=== PATIENT | female | born 1960 | race Caucasian/White ===

== ENCOUNTER → 2016-07-10 | Outpatient (CLI) | payer OTHER ==
[~2016-07-10] MED LIST: BABY81CH; CLEO150C; DECADRON; LEVOXYL25 MCG; LISI20TA5; PENI500T; PERC5TAB8; PRED20TA; PRIL20CA; TESSALON PERLES; VICO5TAB; [UNRECOGNIZED DRUG - OTHER] TOP; cartia xt; omega 3
--- NOTE | 2016-07-10 10:53 | REP ---
PA and lateral chest radiograph 07/10/2016 Indication: Abnormal lung sounds, patient stating coughing since this weekend Comparison: CT chest with IV contrast 08/04/2009 Findings: The cardiomediastinal silhouette is normal. Minimal fibro atelectatic changes are seen in lung bases. There is no focal lung consolidation. There are mild degenerative changes in thoracic spine. Impression: 1. Normal cardiomediastinal silhouette. 2. Minimal fibro atelectatic changes in lung bases. No focal alveolar infiltrate or pleural effusion. Signed by Beverly Sanchez MD 07/10/2016 10:45 A
== END | disposition home or self-care (01) ==
LOC: M LRY 10:24
PROVIDERS: ATTEND Nurse Practitioner Family
DX: R09.89 Other specified symptoms and signs involving the circulatory and respiratory systems (principal); J98.4 Other disorders of lung

== ENCOUNTER → 2016-07-10 | Outpatient (REF) | payer OTHER | END | disposition home or self-care (01) | LOC: M SFHCLERA 10:09 | PROVIDERS: ATTEND Nurse Practitioner Family | DX: R50.9 Fever, unspecified (principal) ==

== ENCOUNTER → 2016-07-31 | Outpatient (REF) | payer OTHER ==
[2016-07-31 11:40] LABS: MEAN CORPUSCULAR HEMOGLOBIN 30.1 pg (27.0-33.0); MEAN CORPUSCULAR VOLUME 85.9 fl (80.0-96.0); RED CELL DISTRIBUTION WIDTH 13.2 % (11.5-14.5); WHITE BLOOD COUNT 5.8 K/mm3 (4.0-10.0)
[2016-07-31 12:20] LABS: ALBUMIN 3.4 GM/DL (3.2-5.2); ALKALINE PHOSPHATASE 65 U/L (45-117); ALT/SGPT 28 U/L (12-78); ANION GAP 10 MEQ/L (8-16); AST/SGOT 18 U/L (15-37); BILIRUBIN,TOTAL 0.4 MG/DL (0.2-1.0); BLOOD UREA NITROGEN 12 MG/DL (7-18); CALCIUM LEVEL 8.4 MG/DL (8.5-10.1); CARBON DIOXIDE LEVEL 27 MEQ/L (21-32); CHLORIDE LEVEL 108 MEQ/L (98-107); CREATININE FOR GFR 0.82 MG/DL (0.55-1.02); FREE T4 1.02 NG/DL (0.76-1.46); GLOMERULAR FILTRATION RATE > 60.0 (>51); GLUCOSE, FASTING 111 MG/DL (70-105); POTASSIUM SERUM 4.2 MEQ/L (3.5-5.1); SODIUM LEVEL 145 MEQ/L (136-145); TOTAL PROTEIN 6.8 GM/DL (6.4-8.2)
== END | disposition home or self-care (01) ==
LOC: M SFHCLERA 10:15
PROVIDERS: ATTEND Family Medicine
DX: I10 Essential (primary) hypertension (principal)

== ENCOUNTER → 2016-09-21 | Outpatient (REF) | payer OTHER | LOC: M SFHCWAGY 09:59 | PROVIDERS: ATTEND Nurse Practitioner Family | DX: Z12.4 Encounter for screening for malignant neoplasm of cervix (principal) ==

== ENCOUNTER → 2016-09-21 | Outpatient (CLI) | payer OTHER ==
--- NOTE | 2016-09-21 10:12 | REPMRS ---
Patient History The patient states she had a clinical breast exam in 08/2016. Patient is postmenopausal. No known family history of cancer. Digital Woman Screen Mammo: September 21, 2016 - Exam #: [id number] Bilateral CC and MLO view(s) were taken. Technologist: Mary Lou Molina Technologist Prior study comparison: July 07, 2014, digital woman screen mammo performed at [facility]. June 05, 2012, digital woman screen mammo performed at [facility]. FINDINGS: There are scattered fibroglandular densities. There has been no change in the appearance of the mammogram from the prior studies. There is a mild amount of residual fibroglandular tissue which is fairly symmetric. There is no interval development of dominant mass, architectural distortion, or clustered microcalcification suggestive of malignancy. Scattered lymph nodes are seen in the axilla. There are scattered, small, benign calcifications of doubtful clinical significance. No significant changes when compared with prior studies. ASSESSMENT: BI-RADS/ACR category 2 mammogram. Benign finding(s). Recommendation Routine screening mammogram in 1 year (for women over age 40). This mammogram was interpreted with the aid of an FDA-approved computer-aided dectection system. A. Negative x-ray reports should not delay biopsy if a dominant or clinically suspicious mass is present. B. Four to eight percent of cancers are not identified by mammography. C. Adenosis and dense breast may obscure an underlying neoplasm. Electronically Signed By: Gómez Lugo MD 09/21/16 [id number]
== END ==
LOC: M WHC 09:22
PROVIDERS: ATTEND Family Medicine
DX: Z12.31 Encounter for screening mammogram for malignant neoplasm of breast (principal); Z78.0 Asymptomatic menopausal state; R92.1 Mammographic calcification found on diagnostic imaging of breast

== ENCOUNTER → 2017-12-05 | Outpatient (REF) | payer OTHER ==
[2017-12-05 20:37] LABS: ESTIMATED AVERAGE GLUCOSE 117 MG/DL (60-110); HEMOGLOBIN A1c 5.7 %
[2017-12-05 20:45] LABS: ALBUMIN 4.1 GM/DL (3.2-5.2); ALBUMIN/GLOBULIN RATIO 1.08 (1.00-1.93); ALKALINE PHOSPHATASE 72 U/L (45-117); ALT/SGPT 26 U/L (12-78); ANION GAP 9 MEQ/L (8-16); AST/SGOT 23 U/L (7-37); BILIRUBIN,TOTAL 0.4 MG/DL (0.2-1.0); BLOOD UREA NITROGEN 14 MG/DL (7-18); CALCIUM LEVEL 9.3 MG/DL (8.5-10.1); CARBON DIOXIDE LEVEL 30 MEQ/L (21-32); CHLORIDE LEVEL 104 MEQ/L (98-107); CHOLESTEROL LEVEL 162 MG/DL (<200); CHOLESTEROL RISK RATIO 4.378 (<5); CREATININE FOR GFR 0.85 MG/DL (0.55-1.30); GLOMERULAR FILTRATION RATE > 60.0 (>51); GLUCOSE, FASTING 75 MG/DL (70-100); HDL CHOLESTEROL 37 MG/DL (>40); LDL CHOLESTEROL 74.2 MG/DL (<100); NON-HDL-C 125 MG/DL; POTASSIUM SERUM 4.6 MEQ/L (3.5-5.1); SODIUM LEVEL 143 MEQ/L (136-145); THYROID STIMULATING HORMONE 0.399 uIU/ML (0.358-3.740); TOTAL PROTEIN 7.9 GM/DL (6.4-8.2); TRIGLYCERIDES LEVEL 254 MG/DL (<150)
[2017-12-05 21:18] LABS: HEMATOCRIT 43.8 % (36.0-47.0); HEMOGLOBIN 15.2 g/dl (12.0-15.5); MEAN CORPUSCULAR HEMOGLOBIN 30.2 pg (27.0-33.0); MEAN CORPUSCULAR HGB CONC 34.7 g/dl (32.0-36.5); MEAN CORPUSCULAR VOLUME 87.1 fl (80.0-96.0); PLATELET COUNT, AUTOMATED 350 10^3/uL (150-450); RED BLOOD COUNT 5.03 10^6/uL (4.00-5.40); RED CELL DISTRIBUTION WIDTH 13.3 % (11.5-14.5); WHITE BLOOD COUNT 8.3 10^3/uL (4.0-10.0)
== END ==
LOC: M SFHCLERA 16:05
DX: I10 Essential (primary) hypertension (principal); E03.9 Hypothyroidism, unspecified; R73.01 Impaired fasting glucose; Z13.220 Encounter for screening for lipoid disorders

== ENCOUNTER → 2018-06-16 | Outpatient (REF) | payer OTHER | LOC: M SFHCLERA 09:44 | PROVIDERS: ATTEND Physician Assistant | DX: R53.81 Other malaise (principal) ==

== ENCOUNTER → 2018-06-19 | Outpatient (CLI) | payer OTHER ==
--- NOTE | 2018-06-19 12:12 | REP ---
Clinical: shortness of breath. Comparison: 07/10/2016. Technique: PA and lateral. Findings: The mediastinum and cardiac silhouette are normal. The lung warner are clear and without acute consolidation, effusion, or pneumothorax. The skeletal structures are intact and normal. Impression: 1. No acute cardiopulmonary process. Electronically Signed by Hoang Coffman MD 06/19/2018 12:04 P
== END ==
LOC: M LRY 11:46
PROVIDERS: ATTEND Nurse Practitioner Family
DX: R06.02 Shortness of breath (principal)

== ENCOUNTER → 2018-09-06 | Outpatient (CLI) | payer OTHER ==
--- NOTE | 2018-09-06 16:55 | REP ---
Chest two views HISTORY: Asthma Comparison: 06/19/2018 The lungs are clear. The cardiac silhouette is enlarged. The pulmonary vasculature is normal in appearance. The bony structure is intact. IMPRESSION: Cardiomegaly. Electronically Signed by Rg Pritchard MD 09/06/2018 04:46 P
== END ==
LOC: M LRY 16:19
PROVIDERS: ATTEND Nurse Practitioner Family
DX: I51.7 Cardiomegaly (principal)

== ENCOUNTER → 2018-10-08 | Outpatient (CLI) | payer OTHER ==
--- NOTE | 2018-10-08 09:15 | REP ---
CT chest without contrast: History: History of multiple pulmonary nodules. Previous history of multiple pulmonary granulomas, suspect sarcoidosis. Comparison chest CT study August 04, 2009. Comparison chest x-ray is from September 06, 2018. CT findings: Digital preliminary heater operator helper radiograph is unremarkable. There is no evidence of pleural or pericardial effusion. There is a mild diffuse ground-glass opacity pattern throughout the lung parenchyma consistent with alveolar disease. There are some areas of sparing in the lower lobes bilaterally with some mosaic like changes. There is a small bleb in the right middle lobe. There is a tiny 4 mm stable nodule in the left apex unchanged from the 2010 study. There is a tiny area of peripheral subpleural fibrosis in the right middle lobe. This is also unchanged from the 2010 study. There is another area of peripheral subpleural fibrosis adjacent to it which is stable as well. There is a calcified granuloma in the right lower lobe posteromedially. This is unchanged as well. No other pulmonary nodular density is seen. The ground-glass opacity pattern is new from the 2010 prior study. There is no evidence of pleural or pericardial effusion. No adrenal lesion is seen. The visualized upper abdominal structures show a intrarenal calculus in the upper pole of the left kidney. There are scattered mediastinal lymph nodes. There is a epicardial lymph node adjacent to the central SVC which is normal in size, 0.8 cm, and unchanged from the comparison study. The largest precarinal lymph node measures 9 mm in short axis dimension. This is larger than on the 2010 study. There are two or three other peritracheal lymph nodes which are normal in size. No definite adenopathy. No bony destructive lesion is seen. Impression: Essentially diffuse mild ground-glass opacity pattern in the lung parenchyma with some sparing in the lower lobes. There are only two discernible granulomatous nodules which are unchanged. The ground-glass opacity pattern is new. This pattern has a very broad differential. Electronically Signed by Bo Majano MD 10/08/2018 10:23 A
== END ==
LOC: M RAD 06:52
PROVIDERS: ATTEND Nurse Practitioner Family
DX: Z87.898 Personal history of other specified conditions (principal)

== ENCOUNTER 2018-10-20 06:54 | Inpatient (IN) | payer OTHER ==
[~2018-10-20] VITALS: Ht 162.6 cm; Wt 83.6 kg
[2018-10-20] MEDS ORDERED: NS 1,000 ML IV ONE (07:30)
[2018-10-20] MEDS ORDERED: ALBUTEROL SULFATE 2.5 MG/0.5 ML INH NEB SOLN NEB ONE (07:30)
--- NOTE | 2018-10-20 07:47 | ECGEPIP ---
Stationary ECG Study [facility] - ED Test Date: 2018-10-20 Pat Name: ALLIE JAVIER Department: Room: - Gender: F Extracorporeal Technician: TC : 1960 Requested By: AMBER Brown Order Number: [id number] Reading MD: Leida Knox Measurements Intervals [place] Rate: 86 P: 24 AL: 148 QRS: 51 QRSD: 118 T: 16 QT: 374 QTc: 449 Interpretive Statements SINUS RHYTHM MODERATE INTRAVENTRICULAR CONDUCTION DELAY NO PRIOR FOR COMPARISON Electronically Signed On 10-20-2018 7:47:21 EDT by Leida Knox
[2018-10-20 07:53] LABS: BASO % 0.4 % (0.0-1.0); EOS # 0.3 10^3/uL (0.0-0.50); EOS % 4.3 % (0.0-3.0); HEMATOCRIT 43.9 % (36.0-47.0); HEMOGLOBIN 15.2 g/dl (12.0-15.5); LYMPH # 2.1 10^3/uL (1.5-4.5); LYMPH % 28.8 % (24.0-44.0); MEAN CORPUSCULAR HEMOGLOBIN 29.7 pg (27.0-33.0); MEAN CORPUSCULAR HGB CONC 34.6 g/dl (32.0-36.5); MEAN CORPUSCULAR VOLUME 85.9 fl (80.0-96.0); MONO # 0.6 10^3/uL (0.0-0.8); MONO % 8.1 % (0.0-5.0); NEUTROPHILS # 4.2 10^3/uL (1.8-7.7); PLATELET COUNT, AUTOMATED 351 10^3/uL (150-450); RED BLOOD COUNT 5.11 10^6/uL (4.00-5.40); WHITE BLOOD COUNT 7.2 10^3/uL (4.0-10.0)
[2018-10-20 08:03] LABS: ABG BASE EXCESS -1.7 (-2.0-2.0); ABG O2 SATURATION 90.1 % (95.0-99.0); ABG PARTIAL PRESSURE CO2 34.8 mmHg (35.0-45.0); ABG PARTIAL PRESSURE O2 57.1 mmHg (75.0-100.0); ABG STANDARD HCO3 22.8 MEQ/L (22.0-26.0); ABG TOTAL CO2 23.1 MEQ/L (22.0-29.0); ABG pH (ARTERIAL) 7.419 UNITS (7.350-7.450)
[2018-10-20 08:03] LABS: INR 0.94; PROTHROMBIN TIME 12.7 SECONDS (12.1-14.4)
[2018-10-20] MEDS ORDERED: CALC500C16 PO (08:26)
[2018-10-20] MEDS ORDERED: B COTAB3 PO ×2 (08:26→10:15)
[2018-10-20] MEDS ORDERED: LISI-538 PO ×2 (08:26→10:15)
--- NOTE | 2018-10-20 08:35 | REP ---
Chest two views HISTORY: Cough Comparison: 09/06/2018 The lungs are clear. The heart is normal in size. The pulmonary vasculature is normal in appearance. The bony structure is intact. IMPRESSION: No acute disease. Electronically Signed by Rg Pritchard MD 10/20/2018 08:27 A
[2018-10-20 08:56] LABS: ALBUMIN 3.7 GM/DL (3.2-5.2); ALT/SGPT 21 U/L (12-78); BILIRUBIN,DIRECT < 0.1 MG/DL (0.0-0.2); BILIRUBIN,TOTAL 0.4 MG/DL (0.2-1.0); BLOOD UREA NITROGEN 9 MG/DL (7-18); C REACTIVE PROTEIN QUANTITATIV 1.42 MG/DL (0.00-0.30); CALCIUM LEVEL 8.6 MG/DL (8.5-10.1); CARBON DIOXIDE LEVEL 25 MEQ/L (21-32); CHLORIDE LEVEL 111 MEQ/L (98-107); CPK CREATINE PHOSPHOKINASE 88 U/L (26-192); CREATININE FOR GFR 0.97 MG/DL (0.55-1.30); GLOMERULAR FILTRATION RATE > 60.0 (>51); GLUCOSE, FASTING 115 MG/DL (70-100); MB/CK RELATIVE INDEX 2.73 (< OR =4); NT-PRO BNP 101 PG/ML (<125); POTASSIUM SERUM 4.3 MEQ/L (3.5-5.1); SODIUM LEVEL 141 MEQ/L (136-145); TOTAL PROTEIN 7.3 GM/DL (6.4-8.2); TROPONIN I < 0.02 NG/ML (< 0.10)
[2018-10-20] MEDS ORDERED: ISOVUE-370 76% 100ML VIAL (Q9967) As Ordered ONE (08:58)
[2018-10-20] MEDS ORDERED: PIPERACILLIN/TAZOBACTAM SOD 3.375 GM in D5W MINI-BAG PLUS 50 ML IV ONE (10:00)
--- NOTE | 2018-10-20 10:01 | REP ---
CT ANGIO CHEST: HISTORY: Hypoxia. CONTRAST: Isovue 370, 75 mL. COMPARISON: CT chest 10/08/2018. There are no filling defects in the main, right and left pulmonary arteries or their branches. A diffuse ground-glass appearance is present throughout the lungs that is increased compared to the previous study. A calcified granuloma is present in the right lower lobe seen in image #120. A 4 mm parenchymal nodule is present in the left upper lobe seen in image #28. There is no pleural effusion. The heart is normal in size. There is no aneurysm. Lymph nodes measuring 5 to 9 mm are present in the mediastinum. Degenerative change is present in the thoracic spine. IMPRESSION: 1. There is no pulmonary embolism. 2. There is a diffuse ground-glass appearance of the lungs that is increased compared to the previous study. Electronically Signed by Rg Pritchard MD 10/20/2018 10:09 A
[2018-10-20] MEDS ORDERED: VITA400C53 PO (10:15)
[2018-10-20] MEDS ORDERED: OMEP-218 PO (10:15)
[2018-10-20] MEDS ORDERED: ALBU83IN INH (10:15)
[2018-10-20] MEDS ORDERED: GUAI400T9 PO (10:15)
[2018-10-20] MEDS ORDERED: CHOL10007 PO (10:15)
[2018-10-20] MEDS ORDERED: CALCTAB17 PO (10:15)
[2018-10-20] MEDS ORDERED: CELE20TA PO (10:15)
[2018-10-20] MEDS ORDERED: LORA-436 PO (10:15)
[2018-10-20] MEDS ORDERED: PROAAER10 INH (10:15)
[2018-10-20] MEDS ORDERED: LEVO75TA4 PO (10:15)
[2018-10-20] MEDS ORDERED: ASPI81TA85 PO (10:15)
[2018-10-20] MEDS ORDERED: guaiFENesin 200 MG TAB PO PRN (11:00)
[2018-10-20] MEDS ORDERED: ACETAMINOPHEN TAB 650MG DOSE (2X325MG) PO PRN (11:00)
[2018-10-20] MEDS ORDERED: IPRATROPIUM 0.5MG/ALBUTEROL 2.5MG INH SOL UD 3ML (DUONEB)(J7620) NEB PRN (11:00)
[2018-10-20] MEDS: methylPREDNISolone INJ 40 MG/1 ML VIAL (J2920) IV SCH ×2 (11:40→20:05)
[2018-10-20] MEDS: ENOXAPARIN 40 MG/0.4 ML SYRINGE (J1650) SC SCH (11:40)
[2018-10-20] MEDS: LORATADINE 10 MG TAB PO SCH (11:41)
[2018-10-20] MEDS: ASPIRIN 81 MG ENTERIC TAB PO SCH (11:41)
[2018-10-20] MEDS: VITAMIN D 1,000 INTERNATIONAL UNITS TABLET PO SCH (11:41)
[2018-10-20] MEDS: LEVOTHYROXINE 75MCG TABLET (0.075MG) PO SCH (11:41)
[2018-10-20] MEDS: LISINOPRIL 20 MG TAB PO SCH (11:42)
[2018-10-20] MEDS: IPRATROPIUM 0.5MG/ALBUTEROL 2.5MG INH SOL UD 3ML (DUONEB)(J7620) NEB SCH ×3 (11:48→19:55)
[2018-10-20 12:30] VITALS: BP 145/80
--- NOTE | 2018-10-20 15:29 | HPEPDOC ---
General Date of Admission Oct 20, 2018 at 10:50 Chief Complaint The patient is a 57-year-old female admitted with a reason for visit of Hypoxia. History of Present Illness 57-year-old female with past medical history of hypertension, hypothyroidism, GERD, anxiety/depression, seasonal allergies, and asthma presented to the ER with a chief complaint of shortness of breath and dry nonproductive cough. The patient states that her symptoms initially started back in May 2018 and she was given a trial of antibiotics and steroids which alleviated her respiratory symptoms. She once again had similar episodes of shortness of breath and cough in August and was provided with a similar treatment plan by her outpatient provid er. However, over the last 2 weeks the patient states that she continues to feel short of breath with a nonproductive cough. She denies any fevers, chills, chest pain, palpitations, abdominal pain, lower extremity edema, orthopnea, PND, or any nausea/vomiting/diarrhea. 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 Over the last several days, the patient states that she was checking her pulse oximeter which was noted to be in the 80s at rest and 70s on exertion. She denies a history of COPD, or tobacco use. The patient was referred by her PCP to be seen by pulmonary for the first time in the [place], [place] area but due to her symptoms she came to the ER. In the ER, a CT angiogram of the chest revealed no evidence of pulmonary embolism, however there was a diffuse groundglass appearance of the lungs. The patient will be admitted to the hospitalist service for further evaluation and management. Home Medications Scheduled Aspirin (Aspir 81) 81 Mg Tablet.dr, 81 MG PO DAILY, (Reported) Calcium/Magnesium/Zinc (Xrnuowm-Ldgxlazmz-Sfea Tablet) 1 Each Tablet, 1 TAB PO DAILY, (Reported) Cholecalciferol (Vitamin D3) (Vitamin D3) 1,000 Unit Tablet, 2,000 UNIT PO DAILY, (Reported) Citalopram Hydrobromide (Celexa) 20 Mg Tablet, 20 MG PO QPM, (Reported) Levothyroxine Sodium (Levothyroxine Sodium) 75 Mcg Tablet, 75 MCG PO DAILY, (Reported) Lisinopril (Lisinopril) 20 Mg Tablet, 20 MG PO DAILY, (Reported) Loratadine (Loratadine) 10 Mg Tablet, 10 MG PO DAILY, (Reported) Omeprazole (Omeprazole) 20 Mg Capsule.dr, 20 MG PO DAILY, (Reported) Vitamin B Complex (Vitamin B Complex) 1 Each Tablet, 1 TAB PO DAILY, (Reported) Vitamin E (Vitamin E) 400 Unit Capsule, 400 UNIT PO DAILY, (Reported) Scheduled PRN Albuterol Sulf (Albuterol Sulfate) 2.5 Mg/3 Ml Vial.neb, 2.5 MG INH Q4H PRN for SHORTNESS OF BREATH, (Reported) Albuterol Sulfate (Proair Hfa) 8.5 Gm Hfa.aer.ad, 2 PUFF INH QID PRN for SHORTNESS OF BREATH, (Reported) Guaifenesin (Guaifenesin) 400 Mg Tablet, 400 MG PO Q6H PRN for COUGH, (Reported) Allergies Coded Allergies: amoxicillin (Unverified Adverse Reaction, Unknown, severe diarrhea, 09/24 02/10) clavulanic acid (Unverified Adverse Reaction, Unknown, severe diarrhea, 10/20/18) Past Medical History Medical History As noted in HPI. Surgical History 2 sections, vaginal cyst removal Social History * Smoker: Denies Alcohol: Denies Drugs: denies A-FIB/CHADSVASC A-FIB History Current/History of A-Fib/PAF?: No Review of Systems Other systems 10 point review of systems negative unless otherwise specified in HPI. Physical Examination General Exam: Positive: Alert, Cooperative, No Acute Distress ENT Exam: Positive: Atraumatic, Mucous membr. moist/pink Neck Exam: Negative: JVD Chest Exam: Positive: Other (coarse breath sounds throughout, with fine bibasilar crackles noted on auscultation.) Heart Exam: Positive: Rate Normal, Normal S1, Normal S2 Abdomen Exam: Positive: Soft; Negative: Tenderness Extremity Exam: Negative: Tenderness, Swelling Psych Exam: Positive: Oriented x 3 Vital Signs Vital Signs Date Time Temp Pulse Resp B/P (MAP) Pulse Ox O2 Delivery O2 Flow Rate FiO2 10/20/18 12:30 98.0 85 19 145/80 (101) 95 2.0 10/20/18 11:57 Nasal Cannula Laboratory Data Labs 24H Laboratory Tests 2 10/20/18 07:37: Immature Granulocyte % (Auto) 0.4, White Blood Count 7.2, Red Blood Count 5.11, Hemoglobin 15.2, Hematocrit 43.9, Mean Corpuscular Volume 85.9, Mean Corpuscular Hemoglobin 29.7, Mean Corpuscular Hemoglobin Concent 34.6, Red Cell Distribution Width 13.8, Platelet Count 351, Neutrophils (%) (Auto) 58.0, Lymphocytes (%) (Auto) 28.8, Monocytes (%) (Auto) 8.1H, Eosinophils (%) (Auto) 4.3H, Basophils (%) (Auto) 0.4, Neutrophils # (Auto) 4.2, Lymphocytes # (Auto) 2.1, Monocytes # (Auto) 0.6, Eosinophils # (Auto) 0.3, Basophils # (Auto) 0.0, Nucleated Red Blood Cells % (auto) 0.0, Prothrombin Time 12.7, Prothromb Time International Ratio 0.94, Anion Gap 5L, Glomerular Filtration Rate > 60.0, Lactic Acid Level 1.7, Calcium Level 8.6, Aspartate Amino Transf (AST/SGOT) 25, Alanine Aminotransferase (ALT/SGPT) 21, Alkaline Phosphatase 85, Total Bilirubin 0.4, Direct Bilirubin < 0.1, Total Creatine Kinase 88, Creatine Kinase MB 2.0, Creati ne Kinase MB Relative Index 2.73, Troponin I < 0.02, C-Reactive Protein, Quantitative 1.42H, [id number]-Ljs-D-Type Natriuretic Peptide 101, Total Protein 7.3, Albumin 3.7, Albumin/Globulin Ratio 1.03 10/20/18 07:58: Blood Gas Bicarbonate Standard 22.8, Arterial Blood pH 7.419, Arterial Blood Partial Pressure CO2 34.8L, Arterial Blood Partial Pressure O2 57.1L, Arterial Blood Total CO2 23.1, Arterial Blood HCO3 22.0, Arterial Blood Base Excess -1.7, Arterial Blood Oxygen Saturation 90.1L 10/20/18 14:10: CBC/BMP Laboratory Tests 10/20/18 07:37 Red Blood Count 5.11, Mean Corpuscular Volume 85.9, Mean Corpuscular Hemoglobin 29.7, Mean Corpuscular Hemoglobin Concent 34.6, Red Cell Distribution Width 13.8, Neutrophils (%) (Auto) 58.0, Lymphocytes (%) (Auto) 28.8, Monocytes (%) (Auto) 8.1 H, Eosinophils (%) (Auto) 4.3 H, Basophils (%) (Auto) 0.4, Neutrophils # (Auto) 4.2, Lymphocytes # (Auto) 2.1, Monocytes # (Auto) 0.6, Eosinophils # (Auto) 0.3, Basophils # (Auto) 0.0 Microbiology Microbiology 10/20/18 Blood Culture, Received Pending 10/20/18 Blood Culture, Received Pending 10/20/18 Gram Stain - Final, Resulted 10/20/18 Sputum Culture, Resulted Pending 10/20/18 Respiratory Virus Panel (PCR) (JOSEPHINE) - Final, Complete Human Rhinovirus/Enterovirus Plan / VTE VTE Prophylaxis Ordered?: Yes Plan Plan Hypoxia possibly 2/2 Asthma Exacerbation vs Hypersensitivity Pneumonitis, Viral PNA CTA Chest notable for diffuse groundglass appearance of the lungs I did review the imaging with Dr. Harvey of Pulmonology who thinks that based on the appearance that this may be underlying Asthma exacerbation vs Hyp ersensitivity Pneumonitis especially in light of the patient's eosinophilia noted on CBC differential We will order a hypersensitivity workup, respiratory panel, sputum culture, pro- calcitonin level IV steroids, serial nebulizer therapy We will start the patient on Advair for better control of underlying asthma We will down titrate the patient's supplemental oxygen as tolerated Hypertension, stable Continue lisinopril Anxiety/depression Continue citalopram Seasonal allergies Continue Claritin Hypothyroidism Continue levothyroxine GERD Continue Protonix DVT prophylaxis Lovenox subcutaneously ANASTASIA MCPHERSON MD Oct 20, 2018 15:28
[2018-10-20 16:00] VITALS: BP 132/72
[2018-10-20] MEDS: ADVAIR HFA 230/21MCG INHALER INH SCH (19:42)
[2018-10-20 20:00] VITALS: BP 128/59
[2018-10-20] MEDS: CitaloPRAM (CeleXA) 20 MG TAB PO SCH (20:05)
[2018-10-21] VITALS (8 sets, daily range): BP systolic 110–132; BP diastolic 55–69; O2SAT 94–97
[2018-10-21] MEDS: IPRATROPIUM 0.5MG/ALBUTEROL 2.5MG INH SOL UD 3ML (DUONEB)(J7620) NEB SCH ×7 (03:10→23:36)
[2018-10-21] MEDS: methylPREDNISolone INJ 40 MG/1 ML VIAL (J2920) IV SCH ×3 (04:20→20:16)
[2018-10-21] MEDS: LEVOTHYROXINE 75MCG TABLET (0.075MG) PO SCH (06:27)
[2018-10-21 06:50] LABS: BASO % 0.1 % (0.0-1.0); HEMATOCRIT 41.5 % (36.0-47.0); HEMOGLOBIN 14.2 g/dl (12.0-15.5); LYMPH # 1.8 10^3/uL (1.5-4.5); LYMPH % 12.1 % (24.0-44.0); MEAN CORPUSCULAR HEMOGLOBIN 29.6 pg (27.0-33.0); MEAN CORPUSCULAR HGB CONC 34.2 g/dl (32.0-36.5); MEAN CORPUSCULAR VOLUME 86.5 fl (80.0-96.0); MONO # 0.3 10^3/uL (0.0-0.8); MONO % 2.1 % (0.0-5.0); NEUTROPHILS # 12.3 10^3/uL (1.8-7.7); NEUTROPHILS % 85.1 % (36.0-66.0); PLATELET COUNT, AUTOMATED 355 10^3/uL (150-450); WHITE BLOOD COUNT 14.4 10^3/uL (4.0-10.0)
[2018-10-21 07:17] LABS: BLOOD UREA NITROGEN 10 MG/DL (7-18); CARBON DIOXIDE LEVEL 26 MEQ/L (21-32); CHLORIDE LEVEL 109 MEQ/L (98-107); CREATININE FOR GFR 0.83 MG/DL (0.55-1.30); GLOMERULAR FILTRATION RATE > 60.0 (>51); GLUCOSE, FASTING 131 MG/DL (70-100); MAGNESIUM LEVEL 2.2 MG/DL (1.8-2.4); POTASSIUM SERUM 4.2 MEQ/L (3.5-5.1); SODIUM LEVEL 141 MEQ/L (136-145)
[2018-10-21] MEDS: ADVAIR HFA 230/21MCG INHALER INH SCH ×2 (07:54→21:10)
[2018-10-21] MEDS: PANTOPRAZOLE 20 MG TAB PO SCH (08:34)
[2018-10-21] MEDS: LORATADINE 10 MG TAB PO SCH (08:34)
[2018-10-21] MEDS: ASPIRIN 81 MG ENTERIC TAB PO SCH (08:34)
[2018-10-21] MEDS: ENOXAPARIN 40 MG/0.4 ML SYRINGE (J1650) SC SCH (08:34)
[2018-10-21] MEDS: VITAMIN D 1,000 INTERNATIONAL UNITS TABLET PO SCH (08:34)
[2018-10-21] MEDS: LISINOPRIL 20 MG TAB PO SCH (08:35)
--- NOTE | 2018-10-21 16:45 | IPNPDOC ---
Subjective Date Seen The patient was seen on 10/21/18. Subjective Chief Complaint/HPI Patient seen and examined at bedside. Reports her respiratory status is improved today. However, notes she is still getting short of breath when walking to the bathroom. Objective Physical Examination General Exam: Positive: Alert, Cooperative, No Acute Distress ENT Exam: Positive: Atraumatic, Mucous membr. moist/pink Neck Exam: Negative: JVD Chest Exam: Positive: Other (coarse breath sounds throughout, with fine bibasilar crackles noted on auscultation.) Heart Exam: Positive: Rate Normal, Normal S1, Normal S2 Abdomen Exam: Positive: Soft; Negative: Tenderness Extremity Exam: Negative: Tenderness, Swelling Psych Exam: Positive: Oriented x 3 A-FIB/CHADSVASC A-FIB History Current/History of A-Fib/PAF?: No Assessment /Plan Plan/VTE VTE Prophylaxis Ordered?: Yes Plan Hypoxia, Asthma Exacerbation 2/2 Human Rhinovirus/Enterovirus CTA Chest notable for diffuse groundglass appearance of the lungs Cont IV steroids, serial nebulizer therapy Cont Advair for better control of underlying asthma We will down titrate the patient's supplemental oxygen as tolerated Hypertension, stable Continue lisinopril Anxiety/depression Continue citalopram Seasonal allergies Continue Claritin Hypothyroidism Continue levothyroxine GERD Continue Protonix DVT prophylaxis Lovenox subcutaneously Dispo--pending clinical improvement VS, I&O, 24H, [place] Vital Signs/I&O Vital Signs Date Time Temp Pulse Resp B/P (MAP) Pulse Ox O2 Delivery O2 Flow Rate FiO2 10/21/18 16:30 98.3 83 20 123/57 (79) 94 1.0 10/21/18 15:18 Nasal Cannula I&O- Last 24 Hours up to 6 AM 10/21/18 06:00 Intake Total 1960 ml Output Total 1850 ml Balance 110 ml Laboratory Data 24H LABS Laboratory Tests 2 10/21/18 06:37: Immature Granulocyte % (Auto) 0.6, White Blood Count 14.4H, Red Blood Count 4.80, Hemoglobin 14.2, Hematocrit 41.5, Mean Corpuscular Volume 86.5, Mean Corpuscular Hemoglobin 29.6, Mean Corpuscular Hemoglobin Concent 34.2, Red Cell Distribution Width 13.9, Platelet Count 355, Neutrophils (%) (Auto) 85.1H, Lymphocytes (%) (Auto) 12.1L, Monocytes (%) (Auto) 2.1, Eosinophils (%) (Auto) 0.0, Basophils (%) (Auto) 0.1, Neutrophils # (Auto) 12.3H, Lymphocytes # (Auto) 1.8, Monocytes # (Auto) 0.3, Eosinophils # (Auto) 0.0, Basophils # (Auto) 0.0, Nucleated Red Blood Cells % (auto) 0.0, Anion Gap 6L, Glomerular Filtration Rate > 60.0, Blood Urea Nitrogen 10, Creatinine 0.83, Sodium Level 141, Potassium Level 4.2, Chloride Level 109H, Carbon Dioxide Level 26, Calcium Level 9.0, Magnesium Level 2.2 CBC/BMP Laboratory Tests 10/21/18 06:37 Red Blood Count 4.80, Mean Corpuscular Volume 86.5, Mean Corpuscular Hemoglobin 29.6, Mean Corpuscular Hemoglobin Concent 34.2, Red Cell Distribution Width 13.9, Neutrophils (%) (Auto) 85.1 H, Lymphocytes (%) (Auto) 12.1 L, Monocytes (%) (Auto) 2.1, Eosinophils (%) (Auto) 0.0, Basophils (%) (Auto) 0.1, Neutrop hils # (Auto) 12.3 H, Lymphocytes # (Auto) 1.8, Monocytes # (Auto) 0.3, Eosinophils # (Auto) 0.0, Basophils # (Auto) 0.0, Calcium Level 9.0 Microbiology Microbiology 10/20/18 Blood Culture - Preliminary, Resulted No growth after 24 hours . All specim... 10/20/18 Blood Culture - Preliminary, Resulted No growth after 24 hours . All specim... 10/20/18 Gram Stain - Final, Resulted 10/20/18 Sputum Culture, Resulted Pending 10/20/18 Respiratory Virus Panel (PCR) (JOSEPHINE) - Final, Complete Human Rhinovirus/Enterovirus ANASTASIA MCPHERSON MD Oct 21, 2018 16:45
[2018-10-21] MEDS: CitaloPRAM (CeleXA) 20 MG TAB PO SCH (20:16)
[2018-10-22] VITALS (13 sets, daily range): BP systolic 116–140; BP diastolic 55–64; O2SAT 94–99
[2018-10-22] MEDS: IPRATROPIUM 0.5MG/ALBUTEROL 2.5MG INH SOL UD 3ML (DUONEB)(J7620) NEB SCH ×6 (02:45→23:30)
[2018-10-22] MEDS: methylPREDNISolone INJ 40 MG/1 ML VIAL (J2920) IV SCH ×2 (04:50→15:58)
[2018-10-22] MEDS: LEVOTHYROXINE 75MCG TABLET (0.075MG) PO SCH (06:03)
[2018-10-22 07:24] LABS: BASO % 0.1 % (0.0-1.0); HEMATOCRIT 40.5 % (36.0-47.0); HEMOGLOBIN 13.7 g/dl (12.0-15.5); LYMPH # 2.2 10^3/uL (1.5-4.5); LYMPH % 10.2 % (24.0-44.0); MEAN CORPUSCULAR HEMOGLOBIN 29.5 pg (27.0-33.0); MEAN CORPUSCULAR HGB CONC 33.8 g/dl (32.0-36.5); MEAN CORPUSCULAR VOLUME 87.3 fl (80.0-96.0); MONO # 0.7 10^3/uL (0.0-0.8); MONO % 3.1 % (0.0-5.0); NEUTROPHILS # 18.3 10^3/uL (1.8-7.7); NEUTROPHILS % 85.8 % (36.0-66.0); PLATELET COUNT, AUTOMATED 347 10^3/uL (150-450); RED BLOOD COUNT 4.64 10^6/uL (4.00-5.40); WHITE BLOOD COUNT 21.3 10^3/uL (4.0-10.0)
[2018-10-22] MEDS: ADVAIR HFA 230/21MCG INHALER INH SCH ×2 (07:45→20:44)
[2018-10-22 07:55] LABS: BLOOD UREA NITROGEN 18 MG/DL (7-18); CALCIUM LEVEL 8.8 MG/DL (8.5-10.1); CARBON DIOXIDE LEVEL 26 MEQ/L (21-32); CHLORIDE LEVEL 109 MEQ/L (98-107); CREATININE FOR GFR 0.87 MG/DL (0.55-1.30); GLOMERULAR FILTRATION RATE > 60.0 (>51); GLUCOSE, FASTING 116 MG/DL (70-100); POTASSIUM SERUM 4.4 MEQ/L (3.5-5.1); SODIUM LEVEL 140 MEQ/L (136-145)
[2018-10-22] MEDS: ENOXAPARIN 40 MG/0.4 ML SYRINGE (J1650) SC SCH (09:10)
[2018-10-22] MEDS: LORATADINE 10 MG TAB PO SCH (09:11)
[2018-10-22] MEDS: PANTOPRAZOLE 20 MG TAB PO SCH (09:11)
[2018-10-22] MEDS: ASPIRIN 81 MG ENTERIC TAB PO SCH (09:11)
[2018-10-22] MEDS: LISINOPRIL 20 MG TAB PO SCH (09:11)
[2018-10-22] MEDS: VITAMIN D 1,000 INTERNATIONAL UNITS TABLET PO SCH (09:25)
--- NOTE | 2018-10-22 13:10 | IPNPDOC ---
Subjective Date Seen The patient was seen on 10/22/18. Subjective Chief Complaint/HPI Patient seen and examined at the bedside. Reports that her wheezing is much better this morning. States that she feels less short of breath when walking back and forth from her bed to the bathroom. Objective Physical Examination General Exam: Positive: Alert, Cooperative, No Acute Distress ENT Exam: Positive: Atraumatic, Mucous membr. moist/pink Neck Exam: Negative: JVD Chest Exam: Positive: Diminished (breath sounds diminished in all lung warner, but noted to have much better aeration today compared to yesterday) Heart Exam: Positive: Rate Normal, Normal S1, Normal S2 Abdomen Exam: Positive: Soft; Negative: Tenderness Extremity Exam: Negative: Tenderness, Swelling Psych Exam: Positive: Oriented x 3 A-FIB/CHADSVASC A-FIB History Current/History of A-Fib/PAF?: No Assessment /Plan Plan/VTE VTE Prophylaxis Ordered?: Yes Plan Hypoxia, Asthma Exacerbation 2/2 Human Rhinovirus/Enterovirus CTA Chest notable for diffuse groundglass appearance of the lungs Cont IV steroids, serial nebulizer therapy Cont Advair for better control of underlying asthma The patient's respiratory status is significantly improved today, and she has been weaned off of oxygen while at rest. We will continue to monitor her respiratory status and hope to transition her to by mouth prednisone tomorrow Hypertension, stable Continue lisinopril Anxiety/depression Continue citalopram Seasonal allergies Continue Claritin Hypothyroidism Continue levothyroxine GERD Continue Protonix DVT prophylaxis Lovenox subcutaneously Dispo--pending clinical improvement. Anticipate discharge home in 24-48 hours. We will set the patient up with an outpatient pulmonary referral. VS, I&O, 24H, [place] Vital Signs/I&O Vital Signs Date Time Temp Pulse Resp B/P (MAP) Pulse Ox O2 Delivery O2 Flow Rate FiO2 10/22/18 12:00 95 Room Air 10/22/18 09:11 140/64 10/22/18 08:00 97.4 92 18 10/22/18 06:00 1.0 I&O- Last 24 Hours up to 6 AM 10/22/18 06:00 Intake Total 1560 ml Output Total 1450 ml Balance 110 ml Laboratory Data 24H LABS Laboratory Tests 2 10/22/18 07:02: Immature Granulocyte % (Auto) 0.8, White Blood Count 21.3H, Red Blood Count 4.64, Hemoglobin 13.7, Hematocrit 40.5, Mean Corpuscular Volume 87.3, Mean Corpuscular Hemoglobin 29.5, Mean Corpuscular Hemoglobin Concent 33.8, Red Cell Distribution Width 14.5, Platelet Count 347, Neutrophils (%) (Auto) 85.8H, Lymphocytes (%) (Auto) 10.2L, Monocytes (%) (Auto) 3.1, Eosinophils (%) (Auto) 0.0, Basophils (%) (Auto) 0.1, Neutrophils # (Auto) 18.3H, Lymphocytes # (Auto) 2.2, Monocytes # (Auto) 0.7, Eosinophils # (Auto) 0.0, Basophils # (Auto) 0.0, Nucleated Red Blood Cells % (auto) 0.0, Anion Gap 5L, Glomerular Filtration Rate > 60.0, Blood Urea Nitrogen 18#, Creatinine 0.87, Sodium Level 140, Potassium Level 4.4, Chloride Level 109H, Carbon Dioxide Level 26, Calcium Level 8.8 CBC/BMP Laboratory Tests 10/22/18 07:02 Red Blood Count 4.64, Mean Corpuscular Volume 87.3, Mean Corpuscular Hemoglobin 29.5, Mean Corpuscular Hemoglobin Concent 33.8, Red Cell Distribution Width 14.5, Neutrophils (%) (Auto) 85.8 H, Lymphocytes (%) (Auto) 10.2 L, Monocytes (%) (Auto) 3.1, Eosinophils (%) (Auto) 0.0, Basophils (%) (Auto) 0.1, Neutrophils # (Auto) 18.3 H, Lymphocytes # (Auto) 2.2, Monocytes # (Auto) 0.7, Eosinophils # (Auto) 0.0, Basophils # (Auto) 0.0, Calcium Level 8.8 Microbiology Microbiology 10/20/18 Blood Culture - Preliminary, Resulted No Growth after 48 hours. All Specime... 10/20/18 Blood Culture - Preliminary, Resulted No Growth after 48 hours. All Specime... 10/20/18 Gram Stain - Final, Resulted 10/20/18 Sputum Culture, Resulted Pending 10/20/18 Respiratory Virus Panel (PCR) (JOSEPHINE) - Final, Complete Human Rhinovirus/Enterovirus ANASTASIA MCPHERSON MD Oct 22, 2018 13:10
[2018-10-22] MEDS: CitaloPRAM (CeleXA) 20 MG TAB PO SCH (21:37)
[2018-10-23] VITALS (8 sets, daily range): BP systolic 114–121; BP diastolic 52–63; O2SAT 94–96
[2018-10-23] MEDS: methylPREDNISolone INJ 40 MG/1 ML VIAL (J2920) IV SCH (04:11)
[2018-10-23] MEDS: LEVOTHYROXINE 75MCG TABLET (0.075MG) PO SCH (06:23)
[2018-10-23] MEDS: IPRATROPIUM 0.5MG/ALBUTEROL 2.5MG INH SOL UD 3ML (DUONEB)(J7620) NEB SCH ×2 (08:00→12:00)
[2018-10-23] MEDS: PANTOPRAZOLE 20 MG TAB PO SCH (08:39)
[2018-10-23] MEDS: ASPIRIN 81 MG ENTERIC TAB PO SCH (08:39)
[2018-10-23] MEDS: VITAMIN D 1,000 INTERNATIONAL UNITS TABLET PO SCH (08:39)
[2018-10-23] MEDS: ENOXAPARIN 40 MG/0.4 ML SYRINGE (J1650) SC SCH (08:40)
[2018-10-23] MEDS: LISINOPRIL 20 MG TAB PO SCH (08:40)
[2018-10-23] MEDS: LORATADINE 10 MG TAB PO SCH (08:40)
[2018-10-23 08:47] LABS: BASO % 0.1 % (0.0-1.0); HEMATOCRIT 41.3 % (36.0-47.0); HEMOGLOBIN 13.9 g/dl (12.0-15.5); LYMPH # 2.1 10^3/uL (1.5-4.5); LYMPH % 13.5 % (24.0-44.0); MEAN CORPUSCULAR HEMOGLOBIN 29.3 pg (27.0-33.0); MEAN CORPUSCULAR HGB CONC 33.7 g/dl (32.0-36.5); MEAN CORPUSCULAR VOLUME 86.9 fl (80.0-96.0); MONO # 0.5 10^3/uL (0.0-0.8); NEUTROPHILS # 12.8 10^3/uL (1.8-7.7); NEUTROPHILS % 82.5 % (36.0-66.0); PLATELET COUNT, AUTOMATED 368 10^3/uL (150-450); RED BLOOD COUNT 4.75 10^6/uL (4.00-5.40); WHITE BLOOD COUNT 15.6 10^3/uL (4.0-10.0)
[2018-10-23] MEDS: ADVAIR HFA 230/21MCG INHALER INH SCH (09:07)
[2018-10-23 09:17] LABS: BLOOD UREA NITROGEN 16 MG/DL (7-18); CARBON DIOXIDE LEVEL 27 MEQ/L (21-32); CHLORIDE LEVEL 107 MEQ/L (98-107); GLOMERULAR FILTRATION RATE > 60.0 (>51); GLUCOSE, FASTING 130 MG/DL (70-100); POTASSIUM SERUM 4.3 MEQ/L (3.5-5.1); SODIUM LEVEL 139 MEQ/L (136-145)
[2018-10-23] MEDS ORDERED: ADVA230A INH (10:10)
[2018-10-23] MEDS ORDERED: PRED10TA2 PO (10:10)
--- NOTE | 2018-10-23 12:49 | DS.PDOC ---
Discharge Summary General Date of Admission Oct 20, 2018 at 10:50 Date of Discharge 10/23/18 Discharge Summary PROCEDURES PERFORMED DURING STAY: None. ADMITTING/DISCHARGE DIAGNOSES: Asthma exacerbation secondary to human rhinovirus/enterovirus History of hypertension History of anxiety/depression Seasonal allergies Hypothyroidism GERD COMPLICATIONS/CHIEF COMPLAINT: Hypoxia. HISTORY OF PRESENT ILLNESS: . 57-year-old female with past medical history of hypertension, hypothyroidism, GERD, anxiety/depression, seasonal allergies, and asthma presented to the ER with a chief complaint of shortness of breath and dry nonproductive cough. The patient states that her symptoms initially started back in May 2018 and she was given a trial of antibiotics and steroids which alleviated her respiratory symptoms. She once again had similar episodes of shortness of breath and cough in August and was provided with a similar treatment plan by her outpatient provider. However, over the last 2 weeks the patient states that she continues to feel short of breath with a nonproductive cough. She denies any fevers, chills, chest pain, palpitations, abdominal pain, lower extremity edema, orthopnea, PND, or any nausea/vomiting/diarrhea. 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 Over the last several days, the patient states that she was checking her pulse oximeter which was noted to be in the 80s at rest and 70s on exertion. She denies a history of COPD, or tobacco use. The patient was referred by her PCP to be seen by pulmonary for the first time in the [place], [place] area but due to her symptoms she came to the ER. In the ER, a CT angiogram of the chest revealed no evidence of pulmonary emb olism, however there was a diffuse groundglass appearance of the lungs. The patient will be admitted to the hospitalist service for further evaluation and management. During hospitalization, the patient was started on IV steroids and serial nebulizer therapy. In addition, Advair was added to the patient's medication regimen. Of note, the patient's respiratory panel did come back positive for human rhinovirus/enterovirus. The patient's CT angiogram was reviewed with the on-call cook apprentice who agreed with the treatment mentioned above. A hypersensitivity pneumonitis workup has been ordered as per pulmonary, and is currently pending. The patient has been advised to follow-up as an outpatient with her PCP and/or pulmonary for the results of this. At this time, the patient states that she is feeling much better and is eager to return home. She no longer feels dyspneic and is saturating 96% on room air. I've advised the patient to follow-up with our local pulmonary group as an outpatient. A referral and follow-up appointment has been made for the patient prior to discharge. The patient has also been advised to follow-up with her primary care physician within 7 days. Lastly, she is to return to the ER for any acute emergencies. DISCHARGE MEDICATIONS: Please see below. ALLERGIES: Please see below. PHYSICAL EXAMINATION ON DISCHARGE: VITAL SIGNS: Please see below. General Exam: Positive: Alert, Cooperative, No Acute Distress ENT Exam: Positive: Atraumatic, Mucous membr. moist/pink Neck Exam: Negative: JVD Chest Exam: Clear to auscultation bilaterally Heart Exam: Positive: Rate Normal, Normal S1, Normal S2 Abdomen Exam: Positive: Soft; Negative: Tenderness Extremity Exam: Negative: Tenderness, Swelling Psych Exam: Positive: Oriented x 3 LABORATORY DATA: Please see below. IMAGING: Chest two views HISTORY: Cough Comparison: 09/06/2018 The lungs are clear. The heart is normal in size. The pulmonary vasculature is normal in appearance. The bony structure is intact. IMPRESSION: No acute disease. CT ANGIO CHEST: HISTORY: Hypoxia. CONTRAST: Isovue 370, 75 mL. COMPARISON: CT chest 10/08/2018. There are no filling defects in the main, right and left pulmonary arteries or their branches. A diffuse ground-glass appearance is present throughout the lungs that is increased compared to the previous study. A calcified granuloma is present in the right lower lobe seen in image #120. A 4 mm parenchymal nodule is present in the left upper lobe seen in image #28. There is no pleural effusion. The heart is normal in size. There is no aneurysm. Lymph nodes measuring 5 to 9 mm are present in the mediastinum. Degenerative change is present in the thoracic spine. IMPRESSION: 1. There is no pulmonary embolism. 2. There is a diffuse ground-glass appearance of the lungs that is increased compared to the previous study. PROGNOSIS: Fair ACTIVITY: As tolerated. DIET: 2 g low sodium diet DISCHARGE PLAN: DISPOSITION: 01 Home, Self-Care. DISCHARGE INSTRUCTIONS: I've advised the patient to follow-up with our local pulmonary group as an outpatient. A referral and follow-up appointment has been made for the patient prior to discharge. The patient has also been advised to follow-up with her primary care physician within 7 days. Lastly, she is to return to the ER for any acute emergencies. DISCHARGE CONDITION: Stable. TIME SPENT ON DISCHARGE: Greater than 30 minutes. Vital Signs/I&Os Vital Signs Date Time Temp Pulse Resp B/P (MAP) Pulse Ox O2 Delivery O2 Flow Rate FiO2 10/23/18 09:08 96 Room Air 10/23/18 08:40 121/63 10/23/18 08:00 97.8 83 18 10/22/18 06:00 1.0 I&O- Last 24 Hours up to 6 AM 10/23/18 06:00 Intake Total 1440 ml Output Total 1400 ml Balance 40 ml Laboratory Data Labs 24H Laboratory Tests 2 10/23/18 08:07: Immature Granulocyte % (Auto) 0.9, White Blood Count 15.6H, Red Blood Count 4.75, Hemoglobin 13.9, Hematocrit 41.3, Mean Corpuscular Volume 86.9, Mean Corpuscular Hemoglobin 29.3, Mean Corpuscular Hemoglobin Concent 33.7, Red Cell Distribution Width 14.1, Platelet Count 368, Neutrophils (%) (Auto) 82.5H, Lymphocytes (%) (Auto) 13.5L, Monocytes (%) (Auto) 3.0, Eosinophils (%) (Auto) 0.0, Basophils (%) (Auto) 0.1, Neutrophils # (Auto) 12.8H, Lymphocytes # (Auto) 2.1, Monocytes # (Auto) 0.5, Eosinophils # (Auto) 0.0, Basophils # (Auto) 0.0, Nucleated Red Blood Cells % (auto) 0.0, Anion Gap 5L, Glomerular Filtration Rate > 60.0, Blood Urea Nitrogen 16, Creatinine 0.90, Sodium Level 139, Potassium Level 4.3, Chloride Level 107, Carbon Dioxide Level 27, Calcium Level 9.0 CBC/BMP Laboratory Tests 10/23/18 08:07 Red Blood Count 4.75, Mean Corpuscular Volume 86.9, Mean Corpuscular Hemoglobin 29.3, Mean Corpuscular Hemoglobin Concent 33.7, Red Cell Distribution Width 14.1, Neutrophils (%) (Auto) 82.5 H, Lymphocytes (%) (Auto) 13.5 L, Monocytes (%) (Auto) 3.0, Eosinophils (%) (Auto) 0.0, Basophils (%) (Auto) 0.1, Neutrophils # (Auto) 12.8 H, Lymphocytes # (Auto) 2.1, Monocytes # (Auto) 0.5, Eosinophils # (Auto) 0.0, Basophils # (Auto) 0.0, Calcium Level 9.0 Microbiology Microbiology 10/20/18 Blood Culture - Preliminary, Resulted No Growth after 72 hours. All specime... 10/20/18 Blood Culture - Preliminary, Resulted No Growth after 72 hours. All specime... 10/20/18 Gram Stain - Final, Complete 10/20/18 Sputum Culture - Final, Complete Haemophilus Parainfluenzae 10/20/18 Respiratory Virus Panel (PCR) (JOSEPHINE) - Final, Complete Human Rhinovirus/Enterovirus Discharge Medications Scheduled Aspirin (Aspir 81) 81 Mg Tablet.dr, 81 MG PO DAILY, (Reported) Calcium/Magnesium/Zinc (Pwxtlhp-Hikzzmwnv-Aowg Tablet) 1 Each Tablet, 1 TAB PO DAILY, (Reported) Cholecalciferol (Vitamin D3) (Vitamin D3) 1,000 Unit Tablet, 2,000 UNIT PO DAILY, (Reported) Citalopram Hydrobromide (Celexa) 20 Mg Tablet, 20 MG PO QPM, (Reported) Fluticasone Propion/Salmeterol (Advair Hfa 230-21 Mcg Inhaler) 12 Gm Hfa.aer.ad, 2 PUFF INH BID Levothyroxine Sodium (Levothyroxine Sodium) 75 Mcg Tablet, 75 MCG PO DAILY, (Reported) Lisinopril (Lisinopril) 20 Mg Tablet, 20 MG PO DAILY, (Reported) Loratadine (Loratadine) 10 Mg Tablet, 10 MG PO DAILY, (Reported) Omeprazole (Omeprazole) 20 Mg Capsule.dr, 20 MG PO DAILY, (Reported) Prednisone (Prednisone) 10 Mg Tablet, 10 MG PO TAPER Take 4 tabs daily x 3 days, then 3 tabs daily x 3 days, then 2 tabs daily x 3 days, then 1 tab daily x 3 days and stop Vitamin B Complex (Vitamin B Complex) 1 Each Tablet, 1 TAB PO DAILY, (Reported) Vitamin E (Vitamin E) 400 Unit Capsule, 400 UNIT PO DAILY, (Reported) Scheduled PRN Albuterol Sulf (Albuterol Sulfate) 2.5 Mg/3 Ml Vial.neb, 2.5 MG INH Q4H PRN for SHORTNESS OF BREATH, (Reported) Albuterol Sulfate (Proair Hfa) 8.5 Gm Hfa.aer.ad, 2 PUFF INH QID PRN for SHORTNESS OF BREATH, (Reported) Guaifenesin (Guaifenesin) 400 Mg Tablet, 400 MG PO Q6H PRN for COUGH, (Reported) Allergies Coded Allergies: amoxicillin (Unverified Adverse Reaction, Unknown, severe diarrhea, 10/20/18) clavulanic acid (Unverified Adverse Reaction, Unknown, severe diarrhea, 10/20/18) ANASTASIA MCPHERSON MD October 23, 2018 12:49
[2018-10-25 10:13] LABS: ASPERGILLUS FUMIGATUS AB Negative (Negative); AUREOBASIDIUM PULLULANS Negative (Negative); MICROPOLYSPORA FAENI AB Negative (Negative); PIGEON SERUM AB Negative (Negative); THERMOACTINOMYCES SACCHARI Negative (Negative); THERMOACTINOMYCES VULGARIS Negative (Negative)
== END 2018-10-23 12:00 | disposition home or self-care (01) | DRG 203 ==
LOC: M ED 06:54 → M ED INP 10:50 → M PED 12:30
PROVIDERS: ADMIT Internal Medicine; ATTEND Internal Medicine
DX: J45.901 Unspecified asthma with (acute) exacerbation (principal); K21.9 Gastro-esophageal reflux disease without esophagitis; E03.9 Hypothyroidism, unspecified; F41.9 Anxiety disorder, unspecified; F32.9 Major depressive disorder, single episode, unspecified; I10 Essential (primary) hypertension; B97.10 Unspecified enterovirus as the cause of diseases classified elsewhere; Z79.82 Long term (current) use of aspirin; Z79.899 Other long term (current) drug therapy; Z88.0 Allergy status to penicillin; Z88.8 Allergy status to other drugs, medicaments and biological substances

== ENCOUNTER → 2019-01-01 | Outpatient (REF) | payer OTHER ==
[~2019-01-01] MED LIST changes: +ADVA230A INH; +ALBU83IN INH; +ASPI81TA85 PO; +B COTAB3 PO; +CALC500C16 PO; +CALCTAB17 PO; +CELE20TA PO; +CHOL10007 PO; +GUAI400T9 PO; +LEVO75TA4 PO; +LISI-538 PO; +LORA-436 PO; +OMEP-218 PO; +PRED10TA2 PO; +PROAAER10 INH; +VITA400C53 PO
== END ==
LOC: M SFHCLERA 09:30
PROVIDERS: ATTEND Nurse Practitioner Family
DX: J02.9 Acute pharyngitis, unspecified (principal)

== ENCOUNTER → 2019-01-01 | Outpatient (CLI) | payer OTHER ==
--- NOTE | 2019-01-01 09:55 | REP ---
CHEST, TWO VIEWS: There is no evidence of acute infiltrate. No pleural effusion is seen. The heart is normal in size. The mediastinal silhouette is unremarkable. The visualized osseous structures are intact. There are mild degenerative changes of the spine. IMPRESSION: No acute pulmonary disease. Electronically Signed by Robby Anton MD 01/03/2019 12:25 P
== END ==
LOC: M LRY 09:28
PROVIDERS: ATTEND Nurse Practitioner Family
DX: R09.89 Other specified symptoms and signs involving the circulatory and respiratory systems (principal)

== ENCOUNTER → 2019-01-03 | Outpatient (CLI) | payer OTHER ==
--- NOTE | 2019-01-03 17:48 | REP ---
BILATERAL MAMMOGRAM WITH 3D TOMOSYNTHESIS: No family history of breast cancer. [facility] lifetime risk of breast cancer 7.0%. COMPARISON: 09/21/2016 as well as other prior exams. Moderate fibroglandular tissue was seen fairly symmetrically bilaterally. There appears to be a lobulated nodule approximately 9 mm in maximum diameter at the region of 6 o'clock left breast. It is best seen on the ML view. It is questionably seen on the MLO view. No other mass or clustered microcalcifications are seen. IMPRESSION: There appears to be a lobulated nodular opacity in the region of 6 o'clock left breast. Recommend spot compression views in the MLO and CC projections as well as a tomographic left ML view. Ultrasound will likely also be necessary. This mammogram was interpreted with the aid of an FDA-approved computer-aided detection system. The patient states she has not had a clinical breast exam in over a year. The patient letter being requested is M0.
== END ==
LOC: M WHC 14:56
PROVIDERS: ATTEND Family Medicine
DX: Z12.31 Encounter for screening mammogram for malignant neoplasm of breast (principal); R92.8 Other abnormal and inconclusive findings on diagnostic imaging of breast

== ENCOUNTER → 2019-01-03 | Outpatient (CLI) | payer OTHER | LOC: M WHC 15:16 | PROVIDERS: ATTEND Family Medicine | DX: Z12.4 Encounter for screening for malignant neoplasm of cervix (principal); N88.8 Other specified noninflammatory disorders of cervix uteri ==

== ENCOUNTER → 2019-01-09 | Outpatient (CLI) | payer OTHER ==
--- NOTE | 2019-01-09 09:10 | REP ---
PA and lateral chest: Comparison is 01/01/2019. The lung warner are clear. The cardiac size is upper normal. The jason, mediastinum, and skeletal structures are unremarkable. Impression: Negative PA and lateral chest. There is no interval change Electronically Signed by Robby Thompson MD 01/09/2019 08:48 A
== END ==
LOC: M LRY 08:06
PROVIDERS: ATTEND Nurse Practitioner Family
DX: R05 Cough (principal)

== ENCOUNTER → 2019-01-17 | Outpatient (CLI) | payer OTHER ==
--- NOTE | 2019-01-17 15:13 | REP ---
DIAGNOSTIC MAMMOGRAM, LEFT BREAST, WITH LEFT BREAST ULTRASOUND: Multiple spot compression views of the left breast are performed and correlated with the recent mammogram of 01/03/2019 to evaluate the lobulated nodule in the region of 6 o'clock having a maximum diameter of 9 mm and another subcentimeter nodular density possibly seen in the region of 9 o'clock. Today's spot compression views confirm the presence of these two nodules. The oval nodule at 6-o'clock position is better visualized, but there does appear to be a suggestion of a smaller subcentimeter nodule in the region of 9 o'clock, left breast. Real-time sonographic evaluation of left breast performed. At the 6-o'clock position, there is a cystic structure corresponding to mammographic abnormality demonstrating a few thin internal septations measuring 7 x 3 x 8 mm. At 9-o'clock position, a smaller cyst is seen measuring 4 mm in diameter, also corresponding to the mammographic abnormality. IMPRESSION: BIRADS 2: BI-RADS/ACR category 2 mammogram. Benign Findings. ACR 2 benign. Two subcentimeter nodules in the left breast, one at 6-o'clock position and one at 9-o'clock position are seen by ultrasound to represent benign cysts. ACR 2 benign. Recommend followup mammogram in 1 year. The patient letter being requested is M1. Electronically Signed by Robby Anton MD 01/21/2019 05:36 P
== END ==
LOC: M RAD 13:08
PROVIDERS: ATTEND Family Medicine
DX: N63.20 Unspecified lump in the left breast, unspecified quadrant (principal)

== ENCOUNTER → 2019-05-27 | Outpatient (CLI) | payer OTHER ==
--- NOTE | 2019-05-27 10:52 | REP ---
Clinical: Follow up abnormal lung findings. Technique: Axial noncontrast images from the thoracic inlet to the upper abdomen with coronal and sagittal re-formations. Comparison: 10/20/2018. Findings: The bilateral lung warner are well-aerated and clear. The previously noted diffuse ground-glass opacities have completely resolved. No consolidation. No effusion. No nodule or mass lesion. No pneumothorax. No obvious significant adenopathy. Mediastinum demonstrates normal thoracic aorta, pulmonary vasculature and heart/pericardium. Surrounding musculoskeletal structures are intact. Impression: Normal noncontrast chest CT. Previously noted diffuse ground-glass opacities have completely resolved. Electronically Signed by Hoang Coffman MD 05/27/2019 10:43 A
== END ==
LOC: M RAD 10:11
PROVIDERS: ATTEND Internal Medicine Pulmonary Disease
DX: R91.8 Other nonspecific abnormal finding of lung field (principal)

== ENCOUNTER 2020-03-06 17:36 | Emergency (ER) | payer OTHER ==
[~2020-03-06] VITALS: Ht 162.6 cm; Wt 78.1 kg
[~2020-03-06 17:36] MED LIST changes: -ASPI81TA85 PO; +ASPI81TA86 PO
[2020-03-06] MEDS ORDERED: ARNU1INH3 (17:48)
[2020-03-06] MEDS ORDERED: ONDANSETRON 4MG/2ML VIAL As Ordered ONE (18:10)
[2020-03-06] MEDS ORDERED: ONDANSETRON 4MG/2ML VIAL IV ONE (18:15)
[2020-03-06] MEDS ORDERED: NS 1,000 ML IV ONE (18:15)
[2020-03-06] MEDS ORDERED: KETOROLAC 30 MG/ML 1ML VIAL IV ONE ×2 (18:15→21:15)
[2020-03-06 18:24] LABS: BASO # 0.1 10^3/uL (0.0-0.2); BASO % 0.3 % (0.0-1.0); EOS % 0.2 % (0.0-3.0); HEMATOCRIT 45.4 % (36.0-47.0); HEMOGLOBIN 15.8 g/dl (12.0-15.5); LYMPH # 1.5 10^3/uL (1.5-5.0); LYMPH % 8.1 % (24.0-44.0); MEAN CORPUSCULAR HEMOGLOBIN 29.9 pg (27.0-33.0); MEAN CORPUSCULAR HGB CONC 34.8 g/dl (32.0-36.5); MONO # 0.7 10^3/uL (0.0-0.8); MONO % 3.7 % (0.0-5.0); NEUTROPHILS # 16.4 10^3/uL (1.5-8.5); NEUTROPHILS % 87.3 % (36.0-66.0); PLATELET COUNT, AUTOMATED 354 10^3/uL (150-450); RED BLOOD COUNT 5.28 10^6/uL (4.00-5.40); WHITE BLOOD COUNT 18.8 10^3/uL (4.0-10.0)
[2020-03-06 18:50] LABS: ALBUMIN 4.1 GM/DL (3.2-5.2); ALT/SGPT 24 U/L (12-78); BILIRUBIN,DIRECT < 0.1 MG/DL (0.0-0.2); BILIRUBIN,TOTAL 0.5 MG/DL (0.2-1.0); BLOOD UREA NITROGEN 18 MG/DL (7-18); CALCIUM LEVEL 9.8 MG/DL (8.5-10.1); CARBON DIOXIDE LEVEL 25 MEQ/L (21-32); CHLORIDE LEVEL 104 MEQ/L (98-107); CREATININE FOR GFR 1.33 MG/DL (0.55-1.30); GLOMERULAR FILTRATION RATE 43.6 (>51); GLUCOSE, FASTING 138 MG/DL (70-100); LIPASE 86 U/L (73-393); POTASSIUM SERUM 5.1 MEQ/L (3.5-5.1); SODIUM LEVEL 136 MEQ/L (136-145); TOTAL PROTEIN 8.6 GM/DL (6.4-8.2)
[2020-03-06] MEDS ORDERED: ISOVUE-370 76% 100ML VIAL As Ordered ONE (18:53)
[2020-03-06] MEDS ORDERED: METOCLOPRAMIDE INJ 10MG/2ML VIAL (J2765 PER 1) IV ONE (19:15)
[2020-03-06 19:18] LABS: APPEARANCE, URINE CLEAR (CLEAR); BACTERIA, URINE AUTO NEGATIVE (NEGATIVE); BILIRUBIN, URINE AUTO NEGATIVE (NEGATIVE); BLOOD, URINE BLOOD 1+ (NEGATIVE); COLOR, URINE YELLOW (YELLOW); GLUCOSE, URINE (UA) AUTO NEGATIVE (NEGATIVE); KETONE, URINE AUTO 1+ mg/dL (NEGATIVE); LEUKOCYTE ESTERASE, URINE AUTO NEGATIVE (NEGATIVE); NITRITE, URINE AUTO NEGATIVE (NEGATIVE); PROTEIN, URINE AUTO NEGATIVE (NEGATIVE); RBC, URINE AUTO 6 /HPF (0-3); SQUAMOUS EPITHELIAL CELL UR AU 0 /HPF (0-6); UROBILINOGEN, URINE AUTO 0.2 mg/dL (0.0-2.0); WBC, URINE AUTO 1 /HPF (0-3)
--- NOTE | 2020-03-06 19:55 | REPVR ---
PROCEDURE INFORMATION: Exam: CT Abdomen And Pelvis With Contrast Exam date and time: 03/06/2020 6:58 PM Age: 59 years old Clinical indication: Abdominal pain; Generalized; Additional info: Central abd pain, v with all po, sudden onset TECHNIQUE: Imaging protocol: Computed tomography of the abdomen and pelvis with intravenous contrast. Radiation optimization: All CT scans at this facility use at least one of these dose optimization techniques: automated exposure control; mA and/or kV adjustment per patient size (includes targeted exams where dose is matched to clinical indication); or iterative reconstruction. Contrast material: ISOVUE 370; Contrast volume: 100 ml; Contrast route: INTRAVENOUS (IV); COMPARISON: No relevant prior studies available. FINDINGS: Lungs: Calcified granuloma right lower lobe. Bleb in the right lower lobe. Ground-glass nodule pleural base measuring 3.3 mm right lower lobe (series 201, image 1). 2 mm pleural based nodule right middle lobe (series 201, image 2). Mild centrilobular emphysema at the lung bases. Mediastinal space: Small sliding hiatal hernia with thickening of the distal esophagus. Liver: Normal. No mass. Gallbladder and bile ducts: Normal. No calcified stones. No ductal dilation. Pancreas: Normal. No ductal dilation. Spleen: Normal. No splenomegaly. Adrenals: Normal. No mass. Kidneys and ureters: Mild left-sided hydronephrosis secondary to an obstructing calculus in the proximal left ureter measuring 4 mm with a density of 734 H.The calculus is located at the approximate level of the inferior endplate of L3. . Right kidney is malrotated. Stomach and bowel: Unremarkable. No obstruction. No mucosal thickening. Appendix: Appendix not seen as a separate structure. Intraperitoneal space: Unremarkable. No free air. No significant fluid collection. Vasculature: Unremarkable. No abdominal aortic aneurysm. Lymph nodes: Unremarkable. No enlarged lymph nodes. Bladder: Unremarkable as visualized. Reproductive: Unremarkable as visualized. Bones/joints: Soft tissues: Unremarkable. IMPRESSION: 1. Mild left hydronephrosis secondary to obstructing calculus in the proximal left ureter 2. Small sliding hiatal hernia with thickening of the distal esophagus could represent esophagitis. 3. Pulmonary nodules.Recommend CT Chest at 3-6 months. If stable, then consider CT Chest at 2 years and 4 years. [employer] Peguero, Fleischner [employer], 2017. Electronically signed by: Joy Solano On 03/06/2020 19:54:23 PM
[2020-03-06] MEDS ORDERED: GI COCKTAIL 50ML BTL(HYOSCYAMINE/MAALOX/LIDOCAINE VISCOUS)(1:3:1) PO ONE (20:00)
[2020-03-06] MEDS ORDERED: FLOM0.4C39 PO (20:56)
[2020-03-06] MEDS ORDERED: NORC1TAB7 PO (20:56)
[2020-03-06] MEDS ORDERED: ONDA4TAB6 PO (20:56)
[2020-03-06] MEDS ORDERED: NORCO 5/325MG TABLET (BULK FOR ED) PO ONE (21:15)
[2020-03-06] MEDS ORDERED: TAMSULOSIN 0.4 MG CAP PO ONE (21:15)
[2020-03-06 21:25] VITALS: BP 128/69
--- NOTE | 2020-03-08 12:44 | ED PDOC ---
Post-Departure Follow-Up farzad paz faxed formal report of ct abd/p for fu Carmela Arredondo MD Mar 08, 2020 12:44
[2020-03-29] MEDS ORDERED: ARNU1INH3 INH (09:35)
[2020-03-29] MEDS ORDERED: ACET500T15 PO (09:35)
[2020-03-29] MEDS ORDERED: FLOM0.4C39 PO (09:35)
== END 2020-03-06 21:27 | disposition home or self-care (01) ==
LOC: M ED 17:36
DX: N20.1 Calculus of ureter (principal); K44.9 Diaphragmatic hernia without obstruction or gangrene; R11.10 Vomiting, unspecified; K21.9 Gastro-esophageal reflux disease without esophagitis; J45.909 Unspecified asthma, uncomplicated; I10 Essential (primary) hypertension
CPT/HCPCS: 36415; 74177; 80048; 80076; 81001; 83690; 85025; 96361; 96374; 96375; 99284; J1885; J2405; J2765; Q9967

== ENCOUNTER → 2020-03-25 | Outpatient (CLI) | payer OTHER ==
[~2020-03-25] MED LIST changes: +ACET500T15 PO; +ARNU1INH3; +ARNU1INH3 INH; +FLOM0.4C39 PO; +NORC1TAB7 PO; +ONDA4TAB6 PO; +OXYB5TAB10 PO
[2020-03-25 11:00] LABS: APPEARANCE, URINE CLEAR (CLEAR); BACTERIA, URINE AUTO NEGATIVE (NEGATIVE); BILIRUBIN, URINE AUTO NEGATIVE (NEGATIVE); BLOOD, URINE BLOOD NEGATIVE (NEGATIVE); COLOR, URINE YELLOW (YELLOW); GLUCOSE, URINE (UA) AUTO NEGATIVE (NEGATIVE); KETONE, URINE AUTO NEGATIVE (NEGATIVE); LEUKOCYTE ESTERASE, URINE AUTO NEGATIVE (NEGATIVE); NITRITE, URINE AUTO NEGATIVE (NEGATIVE); PROTEIN, URINE AUTO NEGATIVE (NEGATIVE); RBC, URINE AUTO 1 /HPF (0-3); SPECIFIC GRAVITY URINE AUTO 1.019 (1.002-1.035); SQUAMOUS EPITHELIAL CELL UR AU 0 /HPF (0-6); UROBILINOGEN, URINE AUTO 0.2 mg/dL (0.0-2.0); WBC, URINE AUTO 1 /HPF (0-3)
[2020-03-25 11:31] LABS: HEMATOCRIT 41.8 % (36.0-47.0); HEMOGLOBIN 14.2 g/dl (12.0-15.5); MEAN CORPUSCULAR HEMOGLOBIN 29.5 pg (27.0-33.0); MEAN CORPUSCULAR VOLUME 86.9 fl (80.0-96.0); PLATELET COUNT, AUTOMATED 429 10^3/uL (150-450); RED BLOOD COUNT 4.81 10^6/uL (4.00-5.40); WHITE BLOOD COUNT 8.3 10^3/uL (4.0-10.0)
[2020-03-25 11:41] LABS: INR 0.94; PROTHROMBIN TIME 12.7 SECONDS (12.5-14.3)
[2020-03-25 11:42] LABS: PARTIAL THROMBOPLASTIN TIME 30.6 SECONDS (24.2-38.5)
[2020-03-25 11:50] LABS: CALCIUM LEVEL 9.3 MG/DL (8.5-10.1); CREATININE FOR GFR 1.23 MG/DL (0.55-1.30); GLOMERULAR FILTRATION RATE 47.7 (>51); POTASSIUM SERUM 4.5 MEQ/L (3.5-5.1)
--- NOTE | 2020-03-28 11:35 | ECGEPIP ---
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
--- NOTE | 2020-03-31 09:49 | REP ---
CHEST X-RAY: 2-VIEWS HISTORY: Hydronephrosis. Renal and ureteral calculus obstruction. Preoperative testing. COMPARISON: Chest x-ray 01/09/2019. FINDINGS: The lungs are well-inflated and free of infiltrate. The pleural angles are sharp. Pulmonary vasculature is not increased. Heart size is borderline. Cardiothoracic ratio is 50.6%. Heart is unchanged in size from the comparison study. There are mild degenerative changes in the thoracic spine. IMPRESSION: Borderline cardiomegaly. Otherwise no acute disease. MTDD
== END ==
LOC: M LAB 09:40
PROVIDERS: ATTEND Nurse Practitioner Women's Health
DX: N13.2 Hydronephrosis with renal and ureteral calculous obstruction (principal); Z01.818 Encounter for other preprocedural examination

== ENCOUNTER → 2020-03-26 | Outpatient (CLI) | payer OTHER | LOC: M LABSMTC 11:47 | PROVIDERS: ATTEND Anesthesiology | DX: Z01.812 Encounter for preprocedural laboratory examination (principal); Z20.828 Contact with and (suspected) exposure to other viral communicable diseases ==

== ENCOUNTER 2020-03-31 13:12 | Day surgery (SDC) | payer OTHER ==
[~2020-03-31] VITALS: Ht 162.6 cm; Wt 77.1 kg
[~2020-03-31 13:12] MED LIST changes: +LR 1,000 ML IV ONE; -OXYB5TAB10 PO; +ceFAZolin SOD 2 GM in IV 1 EA IV ONE
[2020-03-31] MEDS ORDERED: LIDOCAINE 2% 100MG/5ML SDV (FOR ANES.) As Ordered ONE (13:44)
[2020-03-31] MEDS ORDERED: propofoL 200 MG/20 ML VIAL As Ordered ONE ×2 (13:44→14:57)
[2020-03-31] MEDS ORDERED: fentaNYL 100 MCG/2 ML INJECTION (J3010) As Ordered ONE ×2 (13:45→15:40)
[2020-03-31] MEDS ORDERED: MIDAZOLAM INJ 2MG/2ML VIAL (J2250 PER 1MG) As Ordered ONE (13:45)
[2020-03-31] MEDS ORDERED: CONRAY-60 60% 50ML VIAL (Q9961) As Ordered ONE (14:30)
[2020-03-31] MEDS ORDERED: dexameTHASONE 4 MG/ML 1ML VIAL (J1100 PER 1MG) As Ordered ONE (14:55)
[2020-03-31] MEDS ORDERED: ONDANSETRON 4MG/2ML VIAL As Ordered ONE (14:55)
[2020-03-31] MEDS ORDERED: ACETAMINOPHEN 1000MG 100ML IV BTL (OFIRMEV) (J0131 PER 10MG) As Ordered ONE (14:55)
[2020-03-31] MEDS ORDERED: OXYB5TAB10 PO (15:33)
[2020-03-31] MEDS ORDERED: LR 1,000 ML IV SCH (15:45)
[2020-03-31] MEDS ORDERED: oxyCODONE 5MG TAB PO PRN (15:45)
[2020-03-31] MEDS ORDERED: fentaNYL 100 MCG/2 ML INJECTION (J3010) IV PRN (15:45)
[2020-03-31] MEDS ORDERED: ACETAMINOPHEN TAB 650MG DOSE (2X325MG) PO PRN (15:45)
[2020-03-31] MEDS ORDERED: ONDANSETRON 4MG/2ML VIAL IV PRN (15:45)
[2020-03-31] MEDS ORDERED: oxyBUTYnin 5 MG TAB PO PRN (15:45)
[2020-03-31 17:05] VITALS: BP 144/77
--- NOTE | 2020-04-05 14:34 | REP ---
C-ARM VIEWS ABDOMEN AND PELVIS HISTORY: Left ureteral stent placement. TECHNIQUE: Two C-arm views abdomen and pelvis performed. FINDINGS: Contrast partially opacifies a mildly dilated left pelvicalyceal system. A left ureteral stent is placed. The proximal end is coiled in the left renal pelvis and the distal end in the urinary bladder. FLUROSCOPY TIME: 5 seconds utilized. MTDD
--- NOTE | 2020-04-06 08:51 | RO ---
DATE OF OPERATION: 03/31/2020. PREOPERATIVE DIAGNOSIS: Left ureteral stone. POSTOPERATIVE DIAGNOSIS: Left ureteral stone. PROCEDURES: Cystoscopy, left ureteroscopy with basket extraction of stone, left retrograde pyelogram with intraoperative interpretation of images, left ureteral stent placement. SURGEON: Tye Medina MD. COMMERCIAL PILOT: None. ANESTHESIA: General. OPERATIVE INDICATIONS: This is a 59-year-old female who was found to have an obstructing 5 mm left ureteropelvic junction stone on recent CAT scan. She was brought to the operating room today for treatment. DESCRIPTION OF PROCEDURE: The patient was brought to the operating room and general anesthesia was induced. Prophylactic antibiotics were infused. She was then placed in the dorsal lithotomy position, prepped and draped in the usual sterile fashion. A rigid cystoscope was inserted into the urethral meatus and advanced into the bladder. A guidewire was advanced up the left collecting system. I then went up the left collecting system with a short semi-rigid ureteroscope and within the distal ureter, the 5 mm stone was seen. The stone was grasped with a basket and removed. I then went back inside the ureter with a ureteroscope and I examined the ureter all the way up to the renal pelvis and no other stones were seen. A retrograde pyelogram was then performed and was notable for moderate left hydronephrosis with no extravasation. I then withdrew the ureteroscope and once again no other stones were seen inside the ureter. I then utilized the previously placed wire to advance a 6-Irish x 22-32 cm JJ ureteral stent into the left collecting system. The wire was removed and there were adequate curls of stent in the left renal pelvis and in the bladder. The bladder was emptied of all fluids. This marked the conclusion of the procedure. The patient was then taken out of the dorsal lithotomy position, awakened from anesthesia, and transferred to the recovery room in stable condition. ESTIMATED BLOOD LOSS: 5 mL. COMPLICATIONS: None. SPECIMEN: Kidney stone. PLAN: Patient will follow up in the Urology Clinic in a few weeks for stent removal. VIVI
[2020-04-09 23:07] LABS: Ca Ox Monohydrate 98 % (.); Size 3x3 mm (.)
== END 2020-03-31 17:05 | disposition home or self-care (01) ==
LOC: M SDC 13:12
PROVIDERS: ATTEND Urology
DX: N13.2 Hydronephrosis with renal and ureteral calculous obstruction (principal); I10 Essential (primary) hypertension; E03.9 Hypothyroidism, unspecified; E78.5 Hyperlipidemia, unspecified; K44.9 Diaphragmatic hernia without obstruction or gangrene; K21.9 Gastro-esophageal reflux disease without esophagitis; G43.909 Migraine, unspecified, not intractable, without status migrainosus; J45.909 Unspecified asthma, uncomplicated; G47.30 Sleep apnea, unspecified; Z91.040 Latex allergy status; Z88.8 Allergy status to other drugs, medicaments and biological substances; Z88.0 Allergy status to penicillin; Z79.899 Other long term (current) drug therapy
CPT/HCPCS: 52332; 52352; 74420; 82365; 88300; C1769; C1894; J0131; J0690; J1100; J2250; J2405; J3010; Q9961

== ENCOUNTER → 2020-04-13 | Outpatient (CLI) | payer OTHER ==
[~2020-04-13] MED LIST changes: -LR 1,000 ML IV ONE; +OXYB5TAB10 PO; -ceFAZolin SOD 2 GM in IV 1 EA IV ONE
[2020-04-13 11:39] LABS: FREE T4 1.38 NG/DL (0.76-1.46); THYROID STIMULATING HORMONE 0.131 uIU/ML (0.358-3.740)
== END ==
LOC: M LAB 09:37
PROVIDERS: ATTEND Nurse Practitioner Family
DX: E03.9 Hypothyroidism, unspecified (principal); Z13.220 Encounter for screening for lipoid disorders

== ENCOUNTER → 2020-11-11 | Outpatient (CLI) | payer OTHER ==
[~2020-11-11] MED LIST changes: -LISI-538 PO; +LISI20TA33 PO; -LORA-436 PO; +LORA-930 PO
--- NOTE | 2020-11-11 10:38 | REPMRS ---
Patient History The patient states she had a clinical breast exam in October 2020. No known family history of cancer. No Hormone Replacement Therapy No breast complaints today Patient signed the MRS sheet No covid vaccine Patient states she has had at least a 10lb intentional weight loss in the last year Priors on PACS Patient Identification Verified Digital Woman Screen Mammo: November 11, 2020 - Exam #: [id number] Bilateral CC and MLO view(s) were taken. Technologist: Neha Rangel, Technologist Prior study comparison: January 17, 2019, left breast digital mammo diagnostic unilateral, performed at [facility]. January 03, 2019, bilateral digital woman screen mammo performed at [facility]. September 21, 2016, digital woman screen mammo performed at [facility]. FINDINGS: There are scattered fibroglandular densities. The Volpara volumetric breast density category is:B. There has been no change in the appearance of the mammogram from the prior studies. There is a mild amount of scattered fibroglandular density which is fairly symmetric. There is no interval development of dominant mass, architectural distortion, or grouped microcalcification suggestive of malignancy. 3-D tomosynthesis shows no additional findings. Assessment: BI-RADS/ACR category 1 mammogram. Negative Mammogram. Recommendation Routine screening mammogram of both breasts in 1 year (for women over age 40). This patient's [facility] Lifetime Breast Cancer Risk is estimated at 6.9 %. This mammogram was interpreted with the aid of an FDA-approved computer-aided dectection system. Electronically Signed By: Alan Majano MD 11/11/20 1037
== END ==
LOC: M WHC 08:55
PROVIDERS: ATTEND Nurse Practitioner Women's Health
DX: Z12.31 Encounter for screening mammogram for malignant neoplasm of breast (principal)

== ENCOUNTER → 2020-11-11 | Outpatient (REF) | payer OTHER | LOC: M SFHCWAGY 12:40 | PROVIDERS: ATTEND Nurse Practitioner Women's Health | DX: Z12.4 Encounter for screening for malignant neoplasm of cervix (principal) | CPT/HCPCS: 87624; G0123 ==

== ENCOUNTER → 2022-10-16 | Outpatient (REF) | payer OTHER ==
[~2022-10-16] MED LIST changes: +ALBU2.5V10 INH; -ALBU83IN INH; +OMEP-173 PO; -OMEP-218 PO
== END ==
LOC: M PLALAB 12:52
PROVIDERS: ATTEND Obstetrics & Gynecology
DX: Z12.4 Encounter for screening for malignant neoplasm of cervix (principal)
CPT/HCPCS: 87624; G0123

== ENCOUNTER → 2022-10-16 | Outpatient (CLI) | payer OTHER | LOC: M WHC 10:20 | PROVIDERS: ATTEND Obstetrics & Gynecology | DX: Z12.31 Encounter for screening mammogram for malignant neoplasm of breast (principal) ==

== ENCOUNTER → 2022-10-16 | Outpatient (CLI) | payer OTHER ==
[2022-10-16 13:21] LABS: ALBUMIN 3.7 G/DL (3.2-5.2); ALKALINE PHOSPHATASE 61 U/L (46-116); ALT/SGPT 16 U/L (7.0-40); AST/SGOT 20 U/L (<34); BILIRUBIN,TOTAL 0.5 MG/DL (0.3-1.2); BLOOD UREA NITROGEN 18 MG/DL (9-23); CALCIUM LEVEL 9.5 MG/DL (8.3-10.6); CARBON DIOXIDE LEVEL 32 MMOL/L (20-31); CHLORIDE LEVEL 105 MMOL/L (98-107); CHOLESTEROL LEVEL 165 MG/DL (<200); CHOLESTEROL RISK RATIO 4.44 (<5); CREATININE FOR GFR 0.87 MG/DL (0.55-1.30); GLOMERULAR FILTRATION RATE > 60.0 (>45); GLUCOSE, FASTING 86 MG/DL (74-106); HDL CHOLESTEROL 37.1 MG/DL (>40); LDL CHOLESTEROL 85.7 MG/DL (<100); NON-HDL-C 127.9 MG/DL; POTASSIUM SERUM 4.4 MMOL/L (3.5-5.1); SODIUM LEVEL 139 MMOL/L (136-145); TOTAL PROTEIN 7.2 G/DL (5.7-8.2); TRIGLYCERIDES LEVEL 211 MG/DL (<150)
[2022-10-16 13:23] LABS: FREE T4 1.13 NG/DL (0.89-1.76); THYROID STIMULATING HORMONE 1.524 uIU/ML (0.55-4.78)
[2022-10-16 13:24] LABS: BASO # 0.1 10^3/uL (0.0-0.2); BASO % 0.6 % (0.0-1.0); EOS # 0.3 10^3/uL (0.0-0.5); EOS % 3.3 % (0.0-3.0); HEMATOCRIT 45.7 % (36.0-47.0); HEMOGLOBIN 15.1 g/dl (12.0-15.5); LYMPH # 2.8 10^3/uL (1.5-5.0); LYMPH % 33.6 % (24.0-44.0); MEAN CORPUSCULAR HEMOGLOBIN 29.9 pg (27.0-33.0); MEAN CORPUSCULAR VOLUME 90.5 fl (80.0-96.0); MONO # 0.6 10^3/uL (0.0-0.8); NEUTROPHILS # 4.6 10^3/uL (1.5-8.5); NEUTROPHILS % 55.1 % (36.0-66.0); PLATELET COUNT, AUTOMATED 327 10^3/uL (150-450); RED BLOOD COUNT 5.05 10^6/uL (4.00-5.40); WHITE BLOOD COUNT 8.4 10^3/uL (4.0-10.0)
[2022-10-16 14:44] LABS: HEMOGLOBIN A1c 5.3 % (4.0-6.0)
== END ==
LOC: M WUC 08:54
PROVIDERS: ATTEND Student in an Organized Health Care Education/Training Program
DX: R73.03 Prediabetes (principal); I10 Essential (primary) hypertension; E03.9 Hypothyroidism, unspecified

== ENCOUNTER → 2023-05-18 | Outpatient (CLI) | payer OTHER ==
[~2023-05-18] MED LIST changes: -OXYB5TAB10 PO; +OXYB5TAB11 PO
[2023-05-18 11:23] LABS: APPEARANCE, URINE HAZY (CLEAR); BACTERIA, URINE AUTO NEGATIVE (NEGATIVE); BILIRUBIN, URINE AUTO NEGATIVE (NEGATIVE); BLOOD, URINE BLOOD NEGATIVE (NEGATIVE); COLOR, URINE YELLOW (YELLOW); GLUCOSE, URINE (UA) AUTO NEGATIVE (NEGATIVE); KETONE, URINE AUTO NEGATIVE (NEGATIVE); LEUKOCYTE ESTERASE, URINE AUTO NEGATIVE (NEGATIVE); NITRITE, URINE AUTO NEGATIVE (NEGATIVE); PROTEIN, URINE AUTO NEGATIVE (NEGATIVE); RBC, URINE AUTO 0 /HPF (0-3); SPECIFIC GRAVITY URINE AUTO 1.011 (1.002-1.035); SQUAMOUS EPITHELIAL CELL UR AU 0 /HPF (0-6); UROBILINOGEN, URINE AUTO 0.2 mg/dL (0.0-2.0); WBC, URINE AUTO 0 /HPF (0-3)
[2023-05-18 11:25] LABS: BASO % 0.5 % (0.0-1.0); EOS # 0.2 10^3/uL (0.0-0.5); EOS % 2.4 % (0.0-3.0); HEMATOCRIT 42.3 % (36.0-47.0); HEMOGLOBIN 14.7 g/dl (12.0-15.5); LYMPH # 2.9 10^3/uL (1.5-5.0); LYMPH % 35.6 % (24.0-44.0); MEAN CORPUSCULAR HEMOGLOBIN 30.9 pg (27.0-33.0); MEAN CORPUSCULAR HGB CONC 34.8 g/dl (32.0-36.5); MEAN CORPUSCULAR VOLUME 89.1 fl (80.0-96.0); MONO # 0.6 10^3/uL (0.0-0.8); MONO % 6.9 % (2.0-8.0); NEUTROPHILS # 4.5 10^3/uL (1.5-8.5); NEUTROPHILS % 54.4 % (36.0-66.0); PLATELET COUNT, AUTOMATED 306 10^3/uL (150-450); RED BLOOD COUNT 4.75 10^6/uL (4.00-5.40); WHITE BLOOD COUNT 8.2 10^3/uL (4.0-10.0)
[2023-05-18 11:47] LABS: ALBUMIN 3.9 G/DL (3.2-5.2); ALKALINE PHOSPHATASE 64 U/L (46-116); ALT/SGPT 18 U/L (7.0-40); AST/SGOT 19 U/L (<34); BILIRUBIN,TOTAL 0.6 MG/DL (0.3-1.2); BLOOD UREA NITROGEN 13 MG/DL (9-23); CALCIUM LEVEL 9.3 MG/DL (8.3-10.6); CARBON DIOXIDE LEVEL 30 MMOL/L (20-31); CHLORIDE LEVEL 106 MMOL/L (98-107); CREATININE FOR GFR 0.81 MG/DL (0.55-1.30); GLOMERULAR FILTRATION RATE > 60.0 (>45); GLUCOSE, FASTING 116 MG/DL (74-106); POTASSIUM SERUM 4.3 MMOL/L (3.5-5.1); SODIUM LEVEL 141 MMOL/L (136-145); TOTAL PROTEIN 7.2 G/DL (5.7-8.2)
[2023-05-18 11:49] LABS: THYROID STIMULATING HORMONE 1.904 uIU/ML (0.55-4.78)
[2023-05-18 11:50] LABS: FREE T4 1.17 NG/DL (0.89-1.76)
== END ==
LOC: M LAB 10:51
PROVIDERS: ATTEND Physician Assistant
DX: H93.A9 Pulsatile tinnitus, unspecified ear (principal)

== ENCOUNTER → 2023-06-08 | Outpatient (CLI) | payer OTHER | LOC: M PLARAD 12:44 | PROVIDERS: ATTEND Physician Assistant | DX: H93.A9 Pulsatile tinnitus, unspecified ear (principal) ==

== ENCOUNTER → 2024-09-02 | Outpatient (CLI) | payer OTHER ==
[~2024-09-02] MED LIST changes: +ONDA-282 PO; -ONDA4TAB6 PO; -OXYB5TAB11 PO; +OXYB5TAB14 PO
== END ==
LOC: M WHC 09:19
PROVIDERS: ATTEND Obstetrics & Gynecology
DX: Z12.31 Encounter for screening mammogram for malignant neoplasm of breast (principal); R92.313 Mammographic fatty tissue density, bilateral breasts

== ENCOUNTER → 2024-10-31 | Outpatient (CLI) | payer OTHER ==
[~2024-10-31] MED LIST changes: -FLOM0.4C39 PO; +TAMS-18 PO
[2024-10-31 13:57] LABS: BASO % 0.4 % (0.0-1.0); EOS # 0.2 10^3/uL (0.0-0.5); EOS % 2.2 % (0.0-3.0); HEMATOCRIT 44.7 % (36.0-47.0); HEMOGLOBIN 15.3 g/dl (12.0-15.5); LYMPH # 2.6 10^3/uL (1.5-5.0); LYMPH % 35.4 % (24.0-44.0); MEAN CORPUSCULAR HEMOGLOBIN 30.8 pg (27.0-33.0); MEAN CORPUSCULAR HGB CONC 34.2 g/dl (32.0-36.5); MEAN CORPUSCULAR VOLUME 89.9 fl (80.0-96.0); MONO # 0.5 10^3/uL (0.0-0.8); MONO % 7.4 % (2.0-8.0); NEUTROPHILS # 3.9 10^3/uL (1.5-8.5); NEUTROPHILS % 54.3 % (36.0-66.0); PLATELET COUNT, AUTOMATED 313 10^3/uL (150-450); RED BLOOD COUNT 4.97 10^6/uL (4.00-5.40); WHITE BLOOD COUNT 7.2 10^3/uL (4.0-10.0)
[2024-10-31 14:01] LABS: THYROID STIMULATING HORMONE 1.231 uIU/ML (0.55-4.78)
[2024-10-31 14:02] LABS: ALBUMIN 3.9 G/DL (3.2-5.2); BILIRUBIN,TOTAL 0.5 MG/DL (0.3-1.2); CALCIUM LEVEL 9.4 MG/DL (8.3-10.6); CREATININE FOR GFR 0.84 MG/DL (0.55-1.30); FREE T4 1.17 NG/DL (0.89-1.76); GLOMERULAR FILTRATION RATE 78.5 (>45); POTASSIUM SERUM 4.6 MMOL/L (3.5-5.1); TOTAL PROTEIN 7.1 G/DL (5.7-8.2)
[2024-10-31 14:44] LABS: HEMOGLOBIN A1c 5.8 % (4.0-6.0)
== END ==
LOC: M WUC 08:35
DX: E03.9 Hypothyroidism, unspecified (principal); I10 Essential (primary) hypertension